=== PATIENT | male | born 1960 | race Asian ===

== ENCOUNTER 2025-09-22 12:33 | Emergency (ER) | payer OTHER ==
[~2025-09-22] VITALS: Ht 177.8 cm; Wt 81.2 kg
[2025-09-22] MEDS ORDERED: CT SWABBABLE VALVE TRANS SET 1 EA INFUS.SET MC ONE (12:52)
[2025-09-22] MEDS ORDERED: IV NS 0.9% 250 ML IV ONE (12:52)
[2025-09-22] MEDS ORDERED: IOHEXOL-350 100 ML VIAL IV ONE (12:52)
[2025-09-22 12:59] LABS: PLATELET COUNT (AUTO) 244 K/uL (150-450); RED BLOOD CELL COUNT(AUTO) 5.53 MIL/uL (4.5-6.0); RED CELL DISTRIBUTION WIDTH 13.5 % (11.5-15.0); WHITE BLOOD COUNT (AUTO) 6.8 K/uL (4.3-11.0)
[2025-09-22 13:02] LABS: CALCIUM, SERUM 8.8 mg/dL (8.5-10.1); CREATININE 0.9 mg/dL (0.6-1.3); SODIUM SERUM 140 mmol/L (136-145); UREA NITROGEN, BLOOD 19 mg/dL (7-18)
[2025-09-22 13:09] LABS: ASPARTATE AMINOTRANSFERASE 34 U/L (15-37); TOTAL PROTEIN, SERUM 8.3 g/dL (6.4-8.2)
[2025-09-22 13:15] LABS: INR 1.02 (0.91-1.10)
[2025-09-22] MEDS ORDERED: AMLO-213 PO (13:25)
[2025-09-22] MEDS ORDERED: dexaMETHasone SOD PHOSPHATE 1 ML ONE (13:25)
[2025-09-22] MEDS ORDERED: METF-881 PO (13:25)
[2025-09-22] MEDS ORDERED: ATOR40TA PO (13:25)
[2025-09-22 13:35] LABS: APPEARANCE,URINE CLEAR (CLEAR); BLOOD, URINE NEGATIVE Ery/uL (NEGATIVE); LEUKOCYTE ESTERASE ,URINE NEGATIVE (NEGATIVE); NITRITE, URINE NEGATIVE (NEGATIVE); UGLUCOSE NEGATIVE (NEGATIVE)
[2025-09-22] MEDS: dexaMETHasone SOD PHOSPHATE 10 MG/ML VIAL IV ONE (13:35)
[2025-09-22] MEDS: LEVETIRACETAM (500MG) 1,000 MG in IV NS 0.9% 90 ML IV SCH (13:35)
[2025-09-22 22:44] VITALS: BP 130/82; O2SAT 98
== END 2025-09-22 23:12 | disposition short-term general hospital (02) ==
LOC: ER 12:33
DX: G93.9 Disorder of brain, unspecified (principal); I10 Essential (primary) hypertension; E11.9 Type 2 diabetes mellitus without complications; R10.20 Pelvic and perineal pain unspecified side; Z79.899 Other long term (current) drug therapy; Z79.84 Long term (current) use of oral hypoglycemic drugs; Z20.822 Contact with and (suspected) exposure to COVID-19
CPT/HCPCS: 99291; 70498; 96365; 71045; 96375; 87426; 93005; 70496; 85025; 80048; 80076; 81003; 36415; 84484 ×2; 85730; 86850; 70450; J1100; J7030; J7050; J1953; Q9967